=== PATIENT | male | born 1960 | race Caucasian/White ===

== ENCOUNTER 2020-11-22 12:48 | Emergency (ER) | payer OTHER ==
[2020-11-22 14:26] LABS: BASOPHIL 0.2 % (0-2); EOSINOPHIL 0.2 % (0-5); HGB 14.7 g/dl (13.2-18.0); LYMPHOCYTE 24.4 % (15-48); MCH 29.1 pg (25.0-31.0); MCHC 32.7 g/dL (32.0-36.0); MCV 89.1 fL (78.0-100.0); MONOCYTE 9.8 % (0-12); MPV 11.1 fL (6.0-9.5); NRBC 0; PLT 156 K/uL (150-400); RBC 5.05 M/uL (4.70-6.00); RDW 13.3 % (11.5-14.0); WBC 5.3 K/uL (4.0-10.5)
[2020-11-22 14:42] LABS: BUN/CREAT RATIO (CALC) 21.2 RATIO; CREATININE 0.99 mg/dL (0.67-1.17)
[2020-11-22] MEDS ORDERED: VENTOLIN HFA IN18 GM INH ×2 (15:32→15:37)
[2020-11-22] MEDS ORDERED: MEDROL 4MG DOSEP4 MG PO ×2 (15:32→15:37)
== END 2020-11-22 15:51 | disposition home or self-care (01) ==
LOC: FER 12:48
PROVIDERS: Nurse Practitioner Family
DX: U07.1 COVID-19 (principal); J12.82 Pneumonia due to coronavirus disease 2019; Z88.5 Allergy status to narcotic agent
CPT/HCPCS: 36415; 71045; 80048; 85025; J2405; J7030

== ENCOUNTER 2020-11-25 09:11 | Emergency (ER) | payer OTHER ==
[~2020-11-25 09:11] MED LIST: MEDROL 4MG DOSEP4 MG PO; VENTOLIN HFA IN18 GM INH
== END 2020-11-25 13:55 | disposition home or self-care (01) ==
LOC: FER 09:11
DX: U07.1 COVID-19 (principal); I10 Essential (primary) hypertension; R91.8 Other nonspecific abnormal finding of lung field; Z88.5 Allergy status to narcotic agent; Z23 Encounter for immunization; Z98.890 Other specified postprocedural states
CPT/HCPCS: M0243; Q0244; U0002